=== PATIENT | female | born 1985 | race Two or more races ===

== ENCOUNTER 2018-01-19 08:52 | Emergency (ER) | payer OTHER ==
[2018-01-19 09:00] VITALS: BP 115/62; PULSE 96; TEMP 98.4; BMI 25.6
--- NOTE | 2018-01-19 09:20 | PDOC ---
History of Present Illness <HarinderRusty - Last Filed: 01/19/18 09:29> - General History Source: Patient Exam Limitations: No Limitations - History of Present Illness Initial Comments: 01/19/18 09:44 The patient is a 32 year old female, with a significant past medical history of migraines, who presents to the emergency department with right facial weakness today. She reports a mild associated MCCORD which is much less severe than her usual migraines. She denies every experiencing the facial weakness in the past. The patient denies visual changes. She denies rashes or insect bites. She denies slurred speech. The patient denies chest pain, shortness of breath, headache and dizziness. The patient denies fever, chills, nausea, vomit, diarrhea and constipation. The patient denies dysuria, frequency, urgency and hematuria. Allergies: NKDA <Trang Peter - Last Filed: 01/19/18 11:30> - General Stated Complaint: RIGHT SIDE OF FACE NUMBNESS Time Seen by Provider: 01/19/18 09:11 Past History - Suicide/Smoking/Psychosocial Hx Smoking History: Never smoked Hx Alcohol Use: No Drug/Substance Use Hx: No <Rusty Pizano - Last Filed: 01/19/18 09:29> <Trang Peter - Last Filed: 01/19/18 11:30> - Past Medical History Allergies/Adverse Reactions: Allergies Allergy/AdvReac Type Severity Reaction Status Date / Time No Known Allergies Allergy Verified 01/19/18 08:56 Home Medications: Ambulatory Orders predniSONE [Deltasone -] 60 mg PO DAILY #12 tablet 01/19/18 Review of Systems - Review of Systems Able to Perform ROS?: Yes Comments:: 01/19/18 09:45 Constitutional: No recent illness; no fever ENT: No sore throat Cardiovascular: No palpitations; no chest pain Pulmonary: No cough; no trouble breathing Gastrointestinal: No nausea; no vomiting; no diarrhea Genitourinary: No urinary problems; no hematuria Skin: No rash Lymph system: No swollen glands Musculoskeletal: No joint swelling Neurological: +R facial weakness; No numbness; No Headache; no vertigo; no lightheadedness Psychiatric:No anxiety; no depression <Trang Peter - Last Filed: 01/19/18 11:30> *Physical Exam - Vital Signs Last Vital Signs Temp Pulse Resp BP Pulse Ox 98.4 F 96 H 115/62 96 01/19/18 08:55 01/19/18 08:55 01/19/18 08:55 01/19/18 08:55 <Rusty Pizano - Last Filed: 01/19/18 09:29> - Vital Signs Last Vital Signs Temp Pulse Resp BP Pulse Ox 98.4 F 96 H 115/62 96 01/19/18 08:55 01/19/18 08:55 01/19/18 08:55 01/19/18 08:55 - Physical Exam Comments: 01/19/18 09:46 ROS: A complete review of 10 out of 10 review of systems is taken and is negative apart from what is previously mentioned below and in the HPI. Vitals: Triage vital signs reviewed General Appearance: No acute distress, well nourished, well developed Head: Atraumatic Eyes: Pupils equal reactive round, extraocular movement intact Ears: TM's normal bilaterally Nose: Nares patent bilaterally; no nasal congestion Throat: Posterior oropharynx without erythema, mucous membranes moist Neck: Supple; No nuchal rigidity Chest Wall: Nontender Cardiac: Regular rate and rhythm, no murmurs, no rubs, no gallops Lungs: Clear to auscultation bilateral, good air movement bilaterally Abdomen: Soft, nondistended, normal bowel sounds, nontender to palpation Genitourinary: Rectal: Exam deferred Extremities: Full range of motion to all extremities, no cyanosis, clubbing, or edema Skin: Warm and dry, no rashes or lesions, no rash, no petechiae Neuro: +decreased wrinkling of forehead on right when compared to left with eyebrow raises. AOX3; +Right Facial Droop. grossly intact, Strength intact to all extremities, Sensation intact to all extremities, gait normal Psych: Normal mood, normal affect <Trang Peter - Last Filed: 01/19/18 11:30> ED Treatment Course - Medications Given in the ED: ED Medications Discontinued Medications Generic Name Dose Route Start Last Admin Trade Name Freq PRN Reason Stop Dose Admin Prednisone 60 mg 01/19/18 09:29 01/19/18 09:33 Deltasone - PO 01/19/18 09:30 60 mg ONCE ONE Administration <Trang Peter - Last Filed: 01/19/18 11:30> Medical Decision Making - Medical Decision Making 01/19/18 09:14 Unilateral right-sided facial weakness. Lyme screen sent , given summer season. No hx or exam findings c/w active lyme Involves the forehead inability to close the right eye otherwise nonfocal neurologic examination. No ear findings. History examination consistent with Hughes's palsy Treat with 5 day course of prednisone Findings, need for follow-up and strict return instructions discussed with patient. <uRsty Pizano - Last Filed: 01/19/18 09:29> - Medical Decision Making 01/19/18 09:45 32 year old F with history of migraines presents to the ED with right facial weakness today with associated headache. Plan: Labs, meds, discharge home with information on Dx <Trang Peter - Last Filed: 01/19/18 11:30> *DC/Admit/Observation/Transfer - Discharge Dispostion Decision to Admit order: No <Rusty Pizano - Last Filed: 01/19/18 09:29> - Attestations Scribe Attestion: 01/19/18 09:46 Documentation prepared by Trang Peter, acting as medical transcription editor for Rusty Pizano MD <Trang Peter - Last Filed: 01/19/18 11:30> Diagnosis at time of Disposition: Hughes's palsy - Discharge Dispostion Disposition: HOME - Prescriptions Prescriptions: predniSONE [Deltasone -] 60 mg PO DAILY #12 tablet - Referrals Referrals: Jean-Paul Ozuna DO [Staff Physician] - - Patient Instructions Printed Discharge Instructions: Hughes's Palsy Additional Instructions: Use lubricating eyedrop every 4-6 hours. At night sleep using an eye patch. Take prednisone as prescribed for the next 5 days. Follow-up with your primary care provider as well as Dr. Ozuna neurology within 1 week. Return to ED for any other neurologic symptoms such as severe headache weakness numbness difficulty speaking or for any concerns. - Post Discharge Activity Forms/Work/School Notes: Back to Work
[2018-01-19] MEDS ORDERED: predniSONE 20 MG TABLET (UD) PO ONE (09:29)
[2018-01-19] MEDS ORDERED: predniSONE 20 MG TABLET (UD) ONE (09:32)
== END 2018-01-19 09:51 | disposition home or self-care (01) ==
LOC: JER 08:52
DX: G51.0 Bell's palsy (principal)
CPT/HCPCS: 36415; 86618; 99283-25

== ENCOUNTER 2021-04-16 09:56 | Emergency (ER) | payer OTHER ==
[2021-04-16 10:22] VITALS: TEMP 98.1; BMI 23.3
[2021-04-16] MEDS ORDERED: SODIUM CHLORIDE 0.9% 500 ML INFUS.BAG IV ONE ×2 (12:44→13:45)
[2021-04-16 13:04] LABS: BASO % 1.2 % (0-2.0); EOS % 0.4 % (0-4.5); HEMATOCRIT 38.5 % (32.4-45.2); HEMOGLOBIN 13.7 GM/dL (10.7-15.3); LYMPH % 30.8 % (8-40); MCH 31.7 pg (25.7-33.7); MCHC 35.6 g/dl (32.0-36.0); MEAN CELL VOLUME 89.1 fl (80-96); MEAN PLT VOLUME 9.3 fl (7.5-11.1); MONO % 5.8 % (3.8-10.2); NEUT % 61.8 % (42.8-82.8); PLATELET COUNT 310 10^3/uL (134-434); RBC 4.32 M/mm3 (3.60-5.2); RDW 12.3 % (11.6-15.6)
[2021-04-16 13:06] LABS: INR 1.11 (0.83-1.09); PROTHROMBIN TIME (PATIENT) 12.5 SEC (9.7-13.0)
[2021-04-16 13:09] LABS: ACTIVATED PTT 29.6 SECONDS (25.2-36.5)
[2021-04-16 13:21] LABS: CHLORIDE 107 mmol/L (98-107); SODIUM 137 mmol/L (136-145)
[2021-04-16 13:25] LABS: ALBUMIN 3.9 g/dl (3.4-5.0); ANION GAP 6 MMOL/L (8-16); CALCIUM 8.4 mg/dL (8.5-10.1); CO2 24 mmol/L (21-32); GLUCOSE,RANDOM 97 mg/dL (74-106)
[2021-04-16 13:27] LABS: SGPT/ALT 17 U/L (13-61)
[2021-04-16 13:29] LABS: CREATININE 0.6 mg/dL (0.55-1.3); SGOT/AST 15 U/L (15-37)
[2021-04-16 13:30] LABS: BILIRUBIN,TOTAL 0.6 mg/dL (0.2-1); TOT PROT 8.2 g/dl (6.4-8.2)
[2021-04-16 13:31] LABS: ALK PHOS 58 U/L (45-117)
[2021-04-16] MEDS ORDERED: ACETAMINOPHEN 1000 MG/100 ML VIAL IVPB ONE (13:44)
[2021-04-16 15:26] VITALS: BP 124/68; PULSE 90
== END 2021-04-16 15:25 | disposition home or self-care (01) ==
LOC: JER 09:56
PROC: 3E033GC Introduction of Other Therapeutic Substance into Peripheral Vein, Percutaneous Approach (ICD-10-PCS; principal; 2021-04-16)
DX: O26.891 Other specified pregnancy related conditions, first trimester (principal); R06.02 Shortness of breath; Z3A.01 Less than 8 weeks gestation of pregnancy
CPT/HCPCS: 36415; 80053; 82550; 84484; 84703; 85025; 85379; 85610; 85730; 93005; 93010; 99284-25; C9803; J0131; U0003; U0005

== ENCOUNTER 2021-12-08 06:10 | Inpatient (IN) | payer OTHER ==
[2021-12-08 08:37] LABS: BASO % 0.6 % (0-2.0); EOS % 0.3 % (0-4.5); HEMATOCRIT 38.3 % (32.4-45.2); HEMOGLOBIN 13.4 GM/dL (10.7-15.3); LYMPH % 20.3 % (8-40); MCH 32.4 pg (25.7-33.7); MCHC 34.9 g/dl (32.0-36.0); MONO % 5.4 % (3.8-10.2); NEUT % 73.4 % (42.8-82.8); PLATELET COUNT 260 10^3/uL (134-434); RBC 4.12 M/mm3 (3.60-5.2); RDW 13.4 % (11.6-15.6); WHITE BLOOD COUNT 8.2 K/mm3 (4.0-10.0)
[2021-12-08 08:48] LABS: INR 0.97 (0.83-1.09); PROTHROMBIN TIME (PATIENT) 11.2 SEC (9.7-13.0)
[2021-12-08 08:50] LABS: ACTIVATED PTT 30.1 SECONDS (25.2-36.5)
[2021-12-08 08:58] LABS: BLOOD UREA NITROGEN 10.1 mg/dL (7-18); CALCIUM 8.9 mg/dL (8.5-10.1)
[2021-12-08 09:02] LABS: CREATININE 0.5 mg/dL (0.55-1.3)
[2021-12-08 10:18] LABS: POC NITRAZINE POS
[2021-12-08 10:25] VITALS: BMI 29.2
[2021-12-08 10:29] LABS: HIV INTERPRETATION NEGATIVE (NEGATIVE)
[2021-12-08] MEDS ORDERED: ELECTROLYTE-148 SOLN 500 ML IV ONE (10:32)
[2021-12-08] MEDS ORDERED: CITRIC ACID/SODIUM CITRATE 30 ML UNIT-DOSE CUP PO ONE (10:32)
[2021-12-08] MEDS ORDERED: ONDANSETRON 4 MG/2 ML VIAL ONE (10:37)
[2021-12-08] MEDS ORDERED: PHENYLEPHRINE HCL 10 MG/1 ML SINGLE DOSE VIAL ONE (10:37)
[2021-12-08] MEDS ORDERED: OXYTOCIN 10 UNITS/ML VIAL ONE (10:37)
[2021-12-08] MEDS ORDERED: KETOROLAC TROMETHAMINE 30 MG/1 ML VIAL ONE (10:37)
[2021-12-08] MEDS ORDERED: ELECTROLYTE-148 SOLN 1,000 ML IV SCH (10:45)
[2021-12-08] MEDS ORDERED: morphine SULFATE/PF 1 MG/2 ML (2cc Syringe - QUVA) ONE (10:54)
[2021-12-08] MEDS ORDERED: WITCH HAZEL 50% (TUCKS) 40 PAD/JAR PAD TP PRN (12:02)
[2021-12-08] MEDS ORDERED: BENZOCAINE 20% 57 GM BOTTLE TP PRN (12:02)
[2021-12-08] MEDS ORDERED: METHYLERGONOVINE MALEATE 0.2 MG/1 ML AMP IM PRN (12:02)
[2021-12-08] MEDS ORDERED: ACETAMINOPHEN 325 MG TABLET (FP) PO PRN (12:02)
[2021-12-08] MEDS ORDERED: BENZOCAINE 28 GM HEMORRHOIDAL OINTMENT TP PRN (12:02)
[2021-12-08] MEDS ORDERED: SENNOSIDES/DOCUSATE COMBO (SENNA PLUS) TABLET (UD) PO PRN (12:02)
[2021-12-08] MEDS ORDERED: OXYTOCIN 20 UNITS in 0.9% NS 20 UNIT/1,000 ML INFUS.BAG IV SCH (12:15)
[2021-12-08 12:25] LABS: CORD BASE EXCESS -4.3 mmol/L (0-2); CORD HCO3 23.9 mmHg (20-29); CORD PCO2 56.1 mmHg (30-78); CORD pH 7.248 (7.14-7.44)
[2021-12-08 12:29] LABS: CORD HCO3 25.7 mmHg (20-29); CORD pH 7.201 (7.14-7.44)
[2021-12-08] MEDS ORDERED: OXYTOCIN 20 UNITS in 0.9% NS 20 UNIT/1,000 ML INFUS.BAG IV ONE (13:20)
[2021-12-08] MEDS: IBUPROFEN 800 MG/8 ML IJ IVPB PRN (17:05)
[2021-12-09] MEDS ORDERED: oxyCODONE HCL 5 MG TABLET PO PRN ×2 (00:02)
[2021-12-09] MEDS: IBUPROFEN 800 MG/8 ML IJ IVPB PRN (04:15)
[2021-12-09 09:23] LABS: BASO % 0.4 % (0-2.0); EOS % 0.7 % (0-4.5); HEMOGLOBIN 12.1 GM/dL (10.7-15.3); LYMPH % 12.5 % (8-40); MCH 32.4 pg (25.7-33.7); MCHC 34.5 g/dl (32.0-36.0); MEAN CELL VOLUME 94.1 fl (80-96); MONO % 5.7 % (3.8-10.2); NEUT % 80.7 % (42.8-82.8); PLATELET COUNT 236 10^3/uL (134-434); RBC 3.72 M/mm3 (3.60-5.2); RDW 13.5 % (11.6-15.6); WHITE BLOOD COUNT 10.2 K/mm3 (4.0-10.0)
[2021-12-09] MEDS ORDERED: FLU VACC QS2021-22(6MOS UP)/PF 60 MCG/0.5 ML SYRINGE IM ONE (10:00)
[2021-12-09] MEDS: IBUPROFEN 600 MG TABLET (FP) PO PRN ×3 (10:38→22:04)
[2021-12-09] MEDS ORDERED: BISACODYL 10 MG SUPP.RECT RC PRN (12:02)
[2021-12-09] MEDS: SIMETHICONE 80 MG TAB.CHEW (FP) PO PRN (22:04)
[2021-12-10] MEDS: IBUPROFEN 600 MG TABLET (FP) PO PRN ×2 (09:39→21:34)
[2021-12-10] MEDS: SIMETHICONE 80 MG TAB.CHEW (FP) PO PRN (21:34)
[2021-12-11] MEDS: IBUPROFEN 600 MG TABLET (FP) PO PRN ×2 (05:52→10:04)
[2021-12-11 08:45] LABS: BASO % 0.8 % (0-2.0); EOS % 2.4 % (0-4.5); HEMATOCRIT 34.1 % (32.4-45.2); LYMPH % 20.4 % (8-40); MCH 32.9 pg (25.7-33.7); MCHC 35.1 g/dl (32.0-36.0); MEAN CELL VOLUME 93.5 fl (80-96); MEAN PLT VOLUME 9.1 fl (7.5-11.1); MONO % 6.2 % (3.8-10.2); NEUT % 70.2 % (42.8-82.8); PLATELET COUNT 286 10^3/uL (134-434); RBC 3.65 M/mm3 (3.60-5.2); RDW 13.4 % (11.6-15.6); WHITE BLOOD COUNT 8.7 K/mm3 (4.0-10.0)
[2021-12-11 08:48] VITALS: BP 126/74; PULSE 79; TEMP 97.8
== END 2021-12-11 11:05 | disposition home or self-care (01) | DRG 788 ==
LOC: JDEL 06:10 → JLDR 07:10 → J3W 13:48
PROVIDERS: ADMIT Obstetrics & Gynecology; ATTEND Obstetrics & Gynecology
PROC: 10D00Z1 Extraction of Products of Conception, Low, Open Approach (ICD-10-PCS; principal; 2021-12-08)
DX: O98.52 Other viral diseases complicating childbirth (principal); A60.00 Herpesviral infection of urogenital system, unspecified; O42.02 Full-term premature rupture of membranes, onset of labor within 24 hours of rupture; O24.420 Gestational diabetes mellitus in childbirth, diet controlled; O34.13 Maternal care for benign tumor of corpus uteri, third trimester; D25.2 Subserosal leiomyoma of uterus; O69.81X0 Labor and delivery complicated by cord around neck, without compression, not applicable or unspecified; Z14.8 Genetic carrier of other disease; Z3A.38 38 weeks gestation of pregnancy; Z37.0 Single live birth
CPT/HCPCS: 36415; 36600; 80048; 82803; 82962; 83986-QW; 85025; 85610; 85730; 86780; 86850; 86900; 86901; 87389; 88307-TC; 90686; C9803-CS; G0008; U0003; U0005